=== PATIENT | female | born 1965 | race Caucasian/White ===

== ENCOUNTER 2016-07-24 15:36 | Emergency (ER) | payer SELFPAY ==
[~2016-07-24] VITALS: Wt 87.0 kg
[~2016-07-24 15:36] MED LIST: AMLO-218 PO; ATOR20TA38 PO; CLOP75TA27 PO; DOCU100C26 PO; GEMF600T PO; GLIP5TAB13 PO; LISI20TA11 PO; METF1000 PO; MUPI22OI TOP
[2016-07-24 17:03] VITALS: BP 180/100; PULSE 81; RESP 20
== END 2016-07-24 18:00 | disposition left against medical advice (07) ==
LOC: E/R 15:36
DX: Z53.21 Procedure and treatment not carried out due to patient leaving prior to being seen by health care provider (principal)
CPT/HCPCS: 82962

== ENCOUNTER 2019-02-18 10:05 | Emergency (ER) | payer SELFPAY ==
[~2019-02-18] VITALS: Ht 160 cm; Wt 88.0 kg
[~2019-02-18 10:05] MED LIST changes: +DOCU-221 PO; -DOCU100C26 PO; +IBUP-1542 PO; +LISI-471 PO; -LISI20TA11 PO; -METF1000 PO; +METF100010 PO
[2019-02-18 10:24] VITALS: Ht 160 cm; Wt 88.0 kg
[2019-02-18] MEDS ORDERED: KETOROLAC 30 MG INJ IM STA (11:17)
== END 2019-02-18 12:20 | disposition home or self-care (01) ==
LOC: FTE 10:05
DX: S83.91XA Sprain of unspecified site of right knee, initial encounter (principal); I10 Essential (primary) hypertension; E11.9 Type 2 diabetes mellitus without complications; X58.XXXA Exposure to other specified factors, initial encounter; Y92.9 Unspecified place or not applicable; Z79.84 Long term (current) use of oral hypoglycemic drugs; Z79.02 Long term (current) use of antithrombotics/antiplatelets
CPT/HCPCS: 73562; 96372; 99284; J1885